=== PATIENT | male | born 2000 | race Caucasian/White ===

== ENCOUNTER 2020-03-25 10:27 | Emergency (ER) | payer MEDICAID ==
[~2020-03-25] VITALS: Ht 180.3 cm; Wt 79.1 kg
[2020-03-25 10:30] VITALS: BP 132/72
[2020-03-25] MEDS ORDERED: AMOX-422 PO (11:06)
== END 2020-03-25 11:26 | disposition home or self-care (01) ==
LOC: ER 10:28
DX: H66.91 Otitis media, unspecified, right ear (principal); H92.01 Otalgia, right ear; Z88.8 Allergy status to other drugs, medicaments and biological substances; Z79.2 Long term (current) use of antibiotics
CPT/HCPCS: 99283

== ENCOUNTER 2020-03-26 10:24 | Emergency (ER) | payer MEDICAID ==
[~2020-03-26] VITALS: Ht 180.3 cm; Wt 78.0 kg
[~2020-03-26 10:24] MED LIST: AMOX-422 PO
[2020-03-26 10:29] VITALS: BP 128/89
[2020-03-26] MEDS ORDERED: acetaminophen 325mg tablet PO ONE (10:40)
[2020-03-26] MEDS ORDERED: ibuprofen tablet 400 MG TABLET PO ONE (10:40)
[2020-03-26 11:12] LABS: CLARITY,URINE CLEAR (Clear); COLOR,URINE YELLOW (Yellow); GLUCOSE, URINE NEGATIVE (Neg); KETONES,URINE NEGATIVE (Neg); LEUKOCYTE ESTERASE ,URINE NEGATIVE (Neg); NITRITES, URINE NEGATIVE (Neg); OCCULT BLOOD,URINE NEGATIVE (Neg); PROTEIN,URINE NEGATIVE (Neg)
[2020-03-26 11:13] LABS: UA COLLECTION TYPE CLN CATCH MIDSTREAM
== END 2020-03-26 11:43 | disposition home or self-care (01) ==
LOC: ER 10:25
DX: N50.812 Left testicular pain (principal); R05 Cough; Z88.8 Allergy status to other drugs, medicaments and biological substances; Z79.2 Long term (current) use of antibiotics
CPT/HCPCS: 76870; 81003; 93976; 99284

== ENCOUNTER 2020-04-29 07:53 | Emergency (ER) | payer MEDICAID ==
[~2020-04-29] VITALS: Ht 180.3 cm; Wt 97.8 kg
[2020-04-29 08:02] VITALS: BP 125/84
== END 2020-04-29 09:00 | disposition home or self-care (01) ==
LOC: ER 07:54
DX: M79.674 Pain in right toe(s) (principal); Z88.8 Allergy status to other drugs, medicaments and biological substances
CPT/HCPCS: 73630; 99283

== ENCOUNTER 2020-05-07 11:36 | Emergency (ER) | payer MEDICAID ==
[~2020-05-07] VITALS: Ht 180.3 cm; Wt 77.4 kg
[2020-05-07] MEDS ORDERED: TETanus/Pertussis (Acell)/Diphther VAC/PF (Tdap-Adult) 0.5ml syringe IMVAC ONE (13:10)
[2020-05-07 13:53] VITALS: BP 121/77
== END 2020-05-07 13:54 | disposition home or self-care (01) ==
LOC: ER 11:36
DX: S80.211A Abrasion, right knee, initial encounter (principal); S90.811A Abrasion, right foot, initial encounter; F12.90 Cannabis use, unspecified, uncomplicated; Z88.8 Allergy status to other drugs, medicaments and biological substances; V19.88XA Pedal cyclist (driver) (passenger) injured in other specified transport accidents, initial encounter; Y93.55 Activity, bike riding; Y92.413 State road as the place of occurrence of the external cause; Y99.9 Unspecified external cause status
CPT/HCPCS: 73560; 73630; 90471; 90715; 99284

== ENCOUNTER 2020-05-16 07:17 | Emergency (ER) | payer MEDICAID ==
[~2020-05-16] VITALS: Ht 180.3 cm; Wt 80.0 kg
[2020-05-16 07:25] VITALS: BP 112/78
== END 2020-05-16 08:10 | disposition home or self-care (01) ==
LOC: ER 07:18
DX: H92.01 Otalgia, right ear (principal); F12.90 Cannabis use, unspecified, uncomplicated; Z72.89 Other problems related to lifestyle; Z88.8 Allergy status to other drugs, medicaments and biological substances
CPT/HCPCS: 99282

== ENCOUNTER 2020-08-06 15:20 | Emergency (ER) | payer MEDICAID ==
[~2020-08-06] VITALS: Ht 180.3 cm; Wt 76.4 kg
[2020-08-06 16:12] VITALS: BP 120/90
== END 2020-08-06 16:33 | disposition home or self-care (01) ==
LOC: ER 15:20
DX: R50.9 Fever, unspecified (principal); R06.02 Shortness of breath; F12.10 Cannabis abuse, uncomplicated
CPT/HCPCS: 36415; 87635; 99283

== ENCOUNTER 2022-04-06 09:54 | Emergency (ER) | payer MEDICAID ==
[~2022-04-06] VITALS: Ht 180.3 cm; Wt 94.1 kg
[2022-04-06 10:18] VITALS: BP 121/87
[2022-04-06] MEDS ORDERED: proparacaine 0.5% ophthalmic drops 15ml LEFTEYE ONE (11:35)
[2022-04-06] MEDS ORDERED: NEO/5DRO7 LEFTEYE ×3 (12:14→12:24)
== END 2022-04-06 12:30 | disposition home or self-care (01) ==
LOC: ER 09:55
DX: H10.12 Acute atopic conjunctivitis, left eye (principal); Z88.8 Allergy status to other drugs, medicaments and biological substances; F12.90 Cannabis use, unspecified, uncomplicated
CPT/HCPCS: 99283

== ENCOUNTER 2022-05-26 09:49 | Emergency (ER) | payer MEDICAID ==
[~2022-05-26] VITALS: Ht 180.3 cm; Wt 94.1 kg
[~2022-05-26 09:49] MED LIST changes: -AMOX-422 PO; +NEO/5DRO7 LEFTEYE
[2022-05-26 10:04] VITALS: BP 132/91
[2022-05-26] MEDS ORDERED: clindamycin 150mg capsule PO ONE (10:30)
[2022-05-26] MEDS ORDERED: ketorolac trometh. 30mg/ml inj. IM ONE (10:30)
[2022-05-26] MEDS ORDERED: CHLO118M PO (10:32)
[2022-05-26] MEDS ORDERED: IBUP-1986 PO (10:32)
[2022-05-26] MEDS ORDERED: CLIN300C3 PO ×2 (10:32→14:25)
== END 2022-05-26 11:10 | disposition home or self-care (01) ==
LOC: ER 09:49
DX: K02.9 Dental caries, unspecified (principal); K08.89 Other specified disorders of teeth and supporting structures; F12.90 Cannabis use, unspecified, uncomplicated; Z88.8 Allergy status to other drugs, medicaments and biological substances; Z79.2 Long term (current) use of antibiotics; Z72.89 Other problems related to lifestyle; Z79.899 Other long term (current) drug therapy
CPT/HCPCS: 96372; 99283; J1885

== ENCOUNTER 2022-09-02 20:24 | Emergency (ER) | payer MEDICAID ==
[~2022-09-02] VITALS: Ht 180.3 cm; Wt 86.7 kg
[~2022-09-02 20:24] MED LIST changes: +CHLO118M PO; +IBUP-1986 PO
[2022-09-02 20:25] VITALS: BP 130/80
== END 2022-09-02 23:51 | disposition left against medical advice (07) ==
LOC: ER 20:24
DX: M25.511 Pain in right shoulder (principal); Z53.21 Procedure and treatment not carried out due to patient leaving prior to being seen by health care provider

== ENCOUNTER 2024-11-10 12:30 | Inpatient (IN) | payer MEDICAID ==
[~2024-11-10] VITALS: Ht 180.3 cm; Wt 98.6 kg
[2024-11-10 13:28] LABS: BASOPHILS % (AUTO) 0.5 % (0-1); EOSINOPHILS # (AUTO) 0.4 X10'3 (0-0.9); EOSINOPHILS % (AUTO) 4.9 % (0-6); HEMATOCRIT 50.9 % (42.0-52.0); HEMOGLOBIN 17.6 g/dl (14.0-17.9); LYMPHOCYTES # (AUTO) 3.7 X10'3 (1.1-4.8); LYMPHOCYTES % (AUTO) 44.5 % (21-51); MEAN CORPUSCULAR HEMOGLOBIN 30.3 PG (27.0-31.0); MEAN CORPUSCULAR HGB CONC 34.5 g/dL (33.0-36.5); MEAN CORPUSCULAR VOLUME 87.7 FL (78-98); MEAN PLATELET VOLUME 7.7 FL (7.4-10.4); MONOCYTES # (AUTO) 0.6 X10'3 (0-0.9); MONOCYTES % (AUTO) 6.9 % (2-12); NEUTROPHILS # (AUTO) 3.6 X10'3 (1.8-7.7); NEUTROPHILS % (AUTO) 43.2 % (42-75); PLATELET COUNT 343 X10'3 (140-440); RED CELL DISTRIBUTION WIDTH 13.1 % (11.5-14.5); WHITE BLOOD COUNT 8.4 X10'3 (4.5-11.0)
[2024-11-10 13:54] LABS: ALBUMIN 4.3 G/DL (3.4-5.0); ANION GAP 12 (8-16); BLOOD UREA NITROGEN 12 MG/DL (7-18); BUN/CREATININE RATIO 14.3 (10.0-20.0); CHLORIDE 104 MMOL/L (99-107); CREATININE 0.84 MG/DL (0.60-1.10); ETHANOL 59 MG/DL (<10); GLUCOSE 98 MG/DL (70-104); SODIUM 141 MMOL/L (135-145); THYROID STIMULATING HORMONE 2.03 ulU/ml (0.34-4.50); TOTAL CARBON DIOXIDE 25.1 MMOL/L (24-32); eCRCL 143 ML/MIN; eGFR > 90 ML/MIN
[2024-11-10 13:58] LABS: POTASSIUM 3.8 MMOL/L (3.5-5.1)
[2024-11-10 14:13] LABS: BILIRUBIN,URINE NEGATIVE (Neg); CLARITY,URINE CLEAR (Clear); COLOR,URINE YELLOW (Yellow); GLUCOSE, URINE NEGATIVE (Neg); KETONES,URINE NEGATIVE (Neg); LEUKOCYTE ESTERASE ,URINE NEGATIVE (Neg); NITRITES, URINE NEGATIVE (Neg); OCCULT BLOOD,URINE NEGATIVE (Neg); PH,URINE 5.5 (4.8-8.0); PROTEIN,URINE NEGATIVE (Neg); UROBILINOGEN,URINE 0.2 E.U/dL (0.2-1.0)
[2024-11-10 14:15] LABS: URINE AMPHETAMINE SCREEN NEGATIVE (Neg); URINE BARBITUATE SCREEN NEGATIVE (Neg); URINE BENZODIAZEPINES SCREEN NEGATIVE (Neg); URINE CANNABINOID SCREEN POSITIVE (Neg); URINE COCAINE SCREEN NEGATIVE (Neg); URINE METHADONE SCREEN NEGATIVE (Neg); URINE OPIATE SCREEN NEGATIVE (Neg); URINE PHENCYCLIDINE SCREEN NEGATIVE (Neg)
[2024-11-10 14:25] LABS: UA COLLECTION TYPE CLN CATCH MIDSTREAM
[2024-11-10] MEDS: chlordiazePOXIDE 25mg capsule PO ONE (15:34)
[2024-11-10] MEDS: OLANZapine 5mg rapidly disint. tablet PO ONE (15:34)
[2024-11-10 20:54] VITALS: RESP 16; O2SAT 98
[2024-11-10] MEDS ORDERED: acetaminophen 325mg tablet PO PRN (20:55)
[2024-11-10] MEDS ORDERED: magnesium hydroxide 30ml (MOM) UD suspension PO PRN (20:55)
[2024-11-10] MEDS ORDERED: mag hydrox/Alum hydrox/simeth 30ml oral suspension PO PRN (20:55)
[2024-11-10] MEDS ORDERED: loperamide 2mg capsule PO PRN (20:55)
[2024-11-10] MEDS: gabapentin 400mg capsule PO SCH (22:00)
[2024-11-11 07:30] VITALS: BP 106/68; PULSE 84; RESP 14; TEMP 97; O2SAT 97
[2024-11-11 08:29] LABS: CHOLESTEROL 335 MG/DL (0-200); LDL CHOLESTEROL 212 MG/DL (50-100); TRIGLYCERIDES 503 MG/DL (20-135)
[2024-11-11 09:47] LABS: CHOL/HDL RATIO 8.8 (0.00-4.99); HDL CHOLESTEROL 38 MG/DL (35-60)
[2024-11-11] MEDS ORDERED: NO HOME MEDS (12:50)
[2024-11-11 18:25] VITALS: RESP 16; O2SAT 98
[2024-11-11 19:26] VITALS: BP 117/70; PULSE 81; RESP 20; TEMP 98.8; O2SAT 99
[2024-11-11] MEDS: aripiprazole 10MG tablet PO SCH (21:04)
[2024-11-12 07:00] VITALS: RESP 16; O2SAT 98
[2024-11-12 08:00] VITALS: BP 121/76; PULSE 80; RESP 16; TEMP 97.1; O2SAT 98
[2024-11-12 19:00] VITALS: RESP 16; O2SAT 98
[2024-11-12 19:26] VITALS: BP 129/82; PULSE 80; RESP 16; TEMP 97.3; O2SAT 95
[2024-11-12] MEDS: acetaminophen 325mg tablet PO PRN (20:48)
[2024-11-13 07:30] VITALS: BP 121/72; PULSE 91; RESP 18; TEMP 97; O2SAT 96
[2024-11-13 18:56] VITALS: RESP 18; O2SAT 96
[2024-11-13 20:39] VITALS: BP 135/83; PULSE 97; RESP 18; TEMP 97.6; O2SAT 95
[2024-11-14 07:30] VITALS: BP 113/68; PULSE 74; RESP 16; TEMP 97.3; O2SAT 95
[2024-11-14 19:00] VITALS: RESP 16; O2SAT 96
[2024-11-14 20:00] VITALS: BP 133/88; PULSE 96; RESP 16; TEMP 97.5; O2SAT 96
[2024-11-15 07:00] VITALS: RESP 12; O2SAT 98
[2024-11-15 08:00] VITALS: BP 123/84; PULSE 96; RESP 12; TEMP 98.6; O2SAT 98
[2024-11-15 19:00] VITALS: RESP 20; O2SAT 97
[2024-11-15 20:00] VITALS: BP 135/85; PULSE 92; RESP 20; TEMP 96.9; O2SAT 97
[2024-11-16 07:00] VITALS: RESP 16; O2SAT 96
[2024-11-16 08:02] VITALS: BP 120/80; PULSE 83; RESP 16; TEMP 97.4; O2SAT 96
[2024-11-16 19:00] VITALS: RESP 18; O2SAT 97
[2024-11-16 20:00] VITALS: BP 126/87; PULSE 93; RESP 18; TEMP 97.7; O2SAT 97
[2024-11-17 07:00] VITALS: RESP 18; O2SAT 95
[2024-11-17 08:00] VITALS: BP 128/84; PULSE 84; RESP 18; TEMP 97.8; O2SAT 95
[2024-11-17] MEDS ORDERED: ARIP10TA87 PO (13:08)
[2024-11-17] MEDS ORDERED: GABA-535 PO (13:08)
== END 2024-11-17 13:51 | disposition home or self-care (01) | DRG 775 ==
LOC: ER 12:31 → UNDOADMIN 16:16 → ADULT MH 16:16
PROVIDERS: ADMIT Psychiatry & Neurology Psychiatry; ATTEND Psychiatry & Neurology Psychiatry
PROC: GZHZZZZ Group Psychotherapy (ICD-10-PCS; principal; 2024-11-11)
DX: F10.94 Alcohol use, unspecified with alcohol-induced mood disorder (principal); R45.851 Suicidal ideations; E66.3 Overweight; F32.9 Major depressive disorder, single episode, unspecified; Z20.822 Contact with and (suspected) exposure to COVID-19; F41.9 Anxiety disorder, unspecified; F84.5 Asperger's syndrome; Z68.30 Body mass index [BMI] 30.0-30.9, adult; Z88.8 Allergy status to other drugs, medicaments and biological substances; Z91.09 Other allergy status, other than to drugs and biological substances
CPT/HCPCS: 36415; 80048; 80061; 80305; 80320; 81003; 83036; 84443; 85025; 87081; 87811; 99285; A6250